=== PATIENT | female | born 1985 ===

== ENCOUNTER 2019-03-23 19:25 | Inpatient (IN) | payer OTHER ==
[2019-03-23] MEDS ORDERED: AMPICILLIN - 2 GM in SODIUM CHLORIDE 100 ML IVPB ONE (20:00)
[2019-03-23] MEDS ORDERED: ELECTROLYTE-148 SOLN 1,000 ML IV SCH (20:45)
--- NOTE | 2019-03-23 20:47 | HP ---
Past Medical History - Admission History of Present Illness: 33 yo @ 39 2/7 wks by first trimester ultrasound, EDC complicated by: 1. AMA - Reassuring [id number] and testing On ASA for PEC prophylaxis 2. Obesity - Starting BMI 30 33 lb wt gain Early GCT - 128 (10 wks) GCT @ 28 wks - 131 Last ultrasound 03/04/2019 (36 wks) 3096g (6-13; 63%ile) Patient presents with chief complaint of contractions that began at 1800 and rupture of membranes at 1845. She reports movement, denies vaginal bleeding. Limitations to Obtaining History: No Limitations - Past Medical History Cardiovascular: No: HTN Pulmonary: No: Asthma Gastrointestinal: No: GERD ...: 3 ...Para: 2 ...Term: 2 ...EDC by Dates: 03/28/19 Heme/Onc: No: Anemia - Past Surgical History Past Surgical History: Yes: None Hx Myomectomy: No Hx Transabdominal Cerclage: No - Smoking History Have you smoked in the past 12 months: No - Alcohol/Substance Use Hx Alcohol Use: No History of Substance Use: reports: None - Social History Usual Living Arrangement: Yes: With Spouse History of Recent Travel: No Home Medications - Allergies Allergies/Adverse Reactions: Allergies Allergy/AdvReac Type Severity Reaction Status Date / Time No Known Allergies Allergy Verified 03/23/19 20:36 Family Medical History Family History: Denies Review of Systems - Review of Systems Constitutional: reports: No Symptoms Cardiovascular: reports: No Symptoms Respiratory: reports: No Symptoms Gastrointestinal: reports: No Symptoms Genitourinary: reports: No Symptoms Musculoskeletal: reports: No Symptoms Neurological: reports: No Symptoms Endocrine: reports: No Symptoms Psychiatric: reports: No Symptoms Physical Exam - Maternity Constitutional: Yes: Well Nourished, No Distress, Calm Cardiovascular: Yes: Regular Rate and Rhythm Lungs: Clear to auscultation - Abdominal Exam/OB Number of Fetuses: Single Heart Rate (range): 140 Category: I - Vaginal Exam/OB Dilatation (cm): 4 - Physical Exam Edema: No Psychiatric: Yes: Alert, Oriented - Labs Lab Results: labs: O positive, antibody negative, RPR NR; HIV Neg; HBs Ag negative; HCV negative; GCT (early and 28 wk) WNL; Inheritest Negative; HB jin AA; Parvo immune; GBS positive Hemorrhage Risk Assessment - Risk Factors Medium Risk Factors: Yes: None High Risk Factors: Yes: None Risk Score: 1 Risk Level: Medium Risk Assessment/Plan 33 yo @ 39 wks SROM, active labor 1. Admit to L&D 2. Routine labs collected and sent 3. GBS positive, no PCn allergy; will start ampicillin 4. Category I FHT 5. Will offer pain medication upon patient request 6. Will proceed with expectant management
[2019-03-23 20:48] LABS: BASO % 0.6 % (0-2.0); EOS % 1.1 % (0-4.5); HEMATOCRIT 35.8 % (32.4-45.2); HEMOGLOBIN 11.5 GM/dL (10.7-15.3); MCH 27.8 pg (25.7-33.7); MCHC 32.1 g/dl (32.0-36.0); MEAN CELL VOLUME 86.5 fl (80-96); MEAN PLT VOLUME 9.6 fl (7.5-11.1); NEUT % 68.3 % (42.8-82.8); PLATELET COUNT 246 K/MM3 (134-434); RBC 4.13 M/mm3 (3.60-5.2); RDW 14.8 % (11.6-15.6)
[2019-03-23 21:02] LABS: INR 0.95 (0.83-1.09); PROTHROMBIN TIME (PATIENT) 11.2 SEC (9.7-13.0)
[2019-03-23 21:05] LABS: ACTIVATED PTT 29.8 SECONDS (25.2-36.5)
[2019-03-23] MEDS ORDERED: BUPIVACAINE HCL/PF 2.5 MG/ML - 30 ML VIAL IJ ONE ×2 (21:06→22:47)
[2019-03-23] MEDS ORDERED: LIDO 2%/EPI 1:200000 PRESRVFRE (20 ML SDVIAL) ONE (21:06)
[2019-03-23 21:12] LABS: BLOOD UREA NITROGEN 10.8 mg/dL (7-18); CALCIUM 8.9 mg/dL (8.5-10.1); CREATININE 0.7 mg/dL (0.55-1.3); POTASSIUM 3.8 mmol/L (3.5-5.1)
[2019-03-23] MEDS ORDERED: NALOXONE HCL 0.4 MG/ML VIAL IVPUSH PRN (21:54)
[2019-03-23] MEDS ORDERED: FENTANYL/BUPIVACAINE/NS/PF - PCEA - 50 ML DISP.SYRIN EP SCH (22:00)
[2019-03-23] MEDS ORDERED: FENTANYL/BUPIVACAINE/NS/PF - PCEA - 50 ML DISP.SYRIN EP ONE (22:13)
[2019-03-23 22:37] VITALS: BMI 35.5
[2019-03-23] MEDS ORDERED: LIDOCAINE HCL 1% PRESERVATIVE FREE - 30ML VIAL ONE (23:38)
[2019-03-23] MEDS ORDERED: OXYTOCIN 20 UNITS in 0.9% NS 20 UNIT/1,000 ML INFUS.BAG IV ONE (23:39)
[2019-03-23] MEDS: OXYTOCIN 20 UNITS in 0.9% NS 20 UNIT/1,000 ML INFUS.BAG IV SCH (23:50)
[2019-03-23] MEDS ORDERED: BENZOCAINE 20% 57 GM BOTTLE TP PRN (23:58)
[2019-03-23] MEDS ORDERED: WITCH HAZEL 50% (TUCKS) 40 PAD/JAR PAD TP PRN (23:58)
[2019-03-23] MEDS ORDERED: BENZOCAINE 28 GM HEMORRHOIDAL OINTMENT TP PRN (23:58)
[2019-03-23] MEDS ORDERED: METHYLERGONOVINE MALEATE 0.2 MG/1 ML AMP IM PRN (23:58)
[2019-03-23] MEDS ORDERED: BISACODYL 10 MG SUPP.RECT RC PRN (23:58)
--- NOTE | 2019-03-23 23:58 | PN ---
Delivery - Delivery Vaginal Delivery: No Problems Type of Anesthesia: Epidural Episiotomy/Laceration: None EBL (cc): 200 Delivery, Single - Stages of Labor Date 1st Stage Initiatied: 03/23/19 Time 1st Stage Initiated: 18:00 Date 2nd Stage Initiated: 03/23/19 Time 2nd Stage Initiated: 23:35 Date of Delivery: 03/23/19 Time of Delivery: 23:42 Date Placenta Delivered: 03/23/19 Time Placenta Delivered: 23:47 Placenta: Yes: Spontaneous - Condition of Perforator Typist/Large Engine Assembler Present: Yes Name: Nohemi Naqvi Gender: Male Position: Left, OA Total Hours ROM (Hrs/Mins): 4 hours 57 minutes - 1 Minute Total Score: 9 5 Minutes Total Score: 9 - [place] Feeding Plan Initial Plan: Exclusive throughout hospitalization Remarks - Remarks Remarks: Patient progressed to fully dilated and at 2335 via delivered a viable male infant in MARIA LUISA position, APGARs 9,9. Weight and length unknown at this time. Head delivered spontaneously followed by shoulders and body without difficulty. with spontaneous cry and placed on mother's abdomen. Nose and mouth was bulb suctioned. Cord was clamped and cut. Perineum and vagina examined, no laceration noted. Placenta was delivered spontaneously and intact. 20 units of pitocin in 1 L IVF was given. All counts correct x 2. Mother and infant stable in LDR. EBL 200cc.
[2019-03-24] MEDS ORDERED: AMPICILLIN - 1 GM in SODIUM CHLORIDE 100 ML IVPB SCH
[2019-03-24] MEDS ORDERED: OXYTOCIN 20 UNITS in 0.9% NS 20 UNIT/1,000 ML INFUS.BAG IV ONE (02:34)
[2019-03-24] MEDS: OXYTOCIN 20 UNITS in 0.9% NS 20 UNIT/1,000 ML INFUS.BAG IV SCH (02:45)
[2019-03-24] MEDS ORDERED: DEXTROSE 5%-LACTATED RINGERS 1,000 ML IV ONE (03:36)
[2019-03-24] MEDS ORDERED: DEXTROSE 5%-LACTATED RINGERS 1,000 ML IV SCH (03:59)
[2019-03-24] MEDS: IBUPROFEN 600 MG TABLET (FP) PO PRN ×2 (05:00→09:37)
[2019-03-24] MEDS: ACETAMINOPHEN 325 MG TABLET (FP) PO PRN ×2 (05:00→09:38)
--- NOTE | 2019-03-24 06:57 | PN ---
Post Progress Note - Subjective Subjective: Patient without acute complaints. Reports tolerating oral intake without nausea or vomiting. Ambulating without dizziness. Denies fevers or chills. Pain well controlled with oral pain medication. Patient desires to breastfeed - latching well. Passing flatus. Post Day: 1 Type of Delivery: Vital Signs: Vital Signs Temperature 98 F 03/24/19 04:58 Pulse Rate 88 03/24/19 04:58 Respiratory Rate 18 03/24/19 04:58 Blood Pressure 131/70 03/24/19 04:58 O2 Sat by Pulse Oximetry (%) 100 03/23/19 23:40 Breast Exam: Yes: Soft Uterus: Yes: Fundus Firm, Fundus @ umbilicus (deviated to patient right) Abdomen/GI: Yes: Abdomen soft, Passing flatus, Tolerating PO. No: Abdominal Distention, Tender Lochia: Yes: Rubra Lochia, amount: Moderate Extremities: Yes: Calves non-tender, Edema (trace) Activity: Ambulating - Labs Labs: CBC WBC 12.0 K/mm3 (4.0-10.0) H 03/23/19 20:30 RBC 4.13 M/mm3 (3.60-5.2) 03/23/19 20:30 Hgb 11.5 GM/dL (10.7-15.3) 03/23/19 20:30 Hct 35.8 % (32.4-45.2) 03/23/19 20:30 MCV 86.5 fl (80-96) 03/23/19 20:30 MCH 27.8 pg (25.7-33.7) 03/23/19 20:30 MCHC 32.1 g/dl (32.0-36.0) 03/23/19 20:30 RDW 14.8 % (11.6-15.6) 03/23/19 20:30 Plt Count 246 K/MM3 (134-434) 03/23/19 20:30 MPV 9.6 fl (7.5-11.1) 03/23/19 20:30 Absolute Neuts (auto) 8.2 K/mm3 (1.5-8.0) H 03/23/19 20:30 Neutrophils % 68.3 % (42.8-82.8) 03/23/19 20:30 Lymphocytes % 19.0 % (8-40) 03/23/19 20:30 Monocytes % 11.0 % (3.8-10.2) H 03/23/19 20:30 Eosinophils % 1.1 % (0-4.5) 03/23/19 20:30 Basophils % 0.6 % (0-2.0) 03/23/19 20:30 Nucleated RBC % 0 % (0-0) 03/23/19 20:30 Assessment/Plan 33 yo PPD# 1 s/p , afebrile, vital signs stable, doing well 1. Continue routine care. 2. AB CBC with mild anemia 3. Rh positive status, no rhogam indicated. 4. Encourage ambulation 5. Continue oral pain medication 6. Anticipate discharge home day #2
[2019-03-24 07:17] LABS: BASO % 0.3 % (0-2.0); EOS % 0.1 % (0-4.5); HEMATOCRIT 31.3 % (32.4-45.2); HEMOGLOBIN 10.3 GM/dL (10.7-15.3); LYMPH % 13.3 % (8-40); MCH 28.3 pg (25.7-33.7); MCHC 32.8 g/dl (32.0-36.0); MEAN CELL VOLUME 86.1 fl (80-96); MEAN PLT VOLUME 10.1 fl (7.5-11.1); MONO % 8.5 % (3.8-10.2); NEUT % 77.8 % (42.8-82.8); PLATELET COUNT 230 K/MM3 (134-434); RBC 3.63 M/mm3 (3.60-5.2); RDW 14.7 % (11.6-15.6); WHITE BLOOD COUNT 14.3 K/mm3 (4.0-10.0)
[2019-03-24] MEDS: PRENATAL VITAMINS W/ FOLIC ACID TABLET (FP) PO SCH (09:37)
[2019-03-24] MEDS ORDERED: SENNOSIDES/DOCUSATE COMBO (SENNA PLUS) TABLET (UD) PO PRN (22:00)
--- NOTE | 2019-03-25 08:03 | DS ---
Physical Exam-PATIENT INTAKE COORDINATOR Vital Signs: Vital Signs Temperature 98.2 F 03/25/19 01:00 Pulse Rate 85 03/25/19 01:00 Respiratory Rate 18 03/25/19 01:00 Blood Pressure 99/63 03/25/19 01:00 O2 Sat by Pulse Oximetry (%) 100 03/23/19 23:40 Constitutional: Yes: Well Nourished, No Distress, Calm Eyes: Yes: WNL, Conjunctiva Clear HENT: Yes: WNL, Atraumatic, Normocephalic Neck: Yes: WNL, Supple, Trachea Midline Cardiovascular: Yes: WNL, Regular Rate and Rhythm Respiratory: Yes: WNL, Regular, CTA Bilaterally Gastrointestinal: Yes: WNL, Normal Bowel Sounds, Soft ...Rectal Exam: Yes: Deferred Renal/: Yes: WNL External Genitalia: Yes: Normal ....Post : Yes: Uterus firm, Uterus non-tender, Slight lochia rubra Musculoskeletal: Yes: WNL Extremities: Yes: WNL Edema: Yes Edema: LLE: Trace, RLE: Trace Integumentary: Yes: WNL Neurological: Yes: WNL, Alert, Oriented ...Motor Strength: WNL Psychiatric: Yes: WNL, Alert, Oriented Labs: CBC, BMP 03/24/19 06:43 03/23/19 20:30 Delivery - Delivery Vaginal Delivery: No Problems, Spontaneous Type of Anesthesia: Epidural Episiotomy/Laceration: None EBL (cc): 200 Delivery, Single - Stages of Labor Date 1st Stage Initiatied: 03/23/19 Time 1st Stage Initiated: 18:00 Date 2nd Stage Initiated: 03/23/19 Time 2nd Stage Initiated: 23:35 Date of Delivery: 03/23/19 Time of Delivery: 23:42 Time Placenta Delivered: 23:47 Placenta: Yes: Spontaneous, Normal Configuration - Condition of Able Bodied Watchman/All Terrain Vehicle Racer Present: Yes Name: Nohemi Naqvi Infant Gender: Male Weight: 3.629 kg Position: Left, OA Total Hours ROM (Hrs/Mins): 4 hours 57 minutes - 1 Minute Total Score: 9 5 Minutes Total Score: 9 - Feeding Plan Initial Plan: Exclusive throughout hospitalization Benefits of Exclusively reinforced: No Discharge Summary Problems reviewed: Yes Reason For Visit: Labor at term Procedures: Principal: HARIS Hospital Course: Normal recovery Condition: Good - Instructions Diet, Activity, Other Instructions: Physical activity Resume your normal everyday activity as tolerated no heavy lifting or exercise until seen by your surgeon. You may walk unlimited maikel of and climb stairs. You may resume driving the car when you feel safe and comfortable behind the wheel. No sexual activity as instructed. Wound care If you have a bandage, leave it on, and keep dry for 48-72 hours. After that time discard the outer bandage. If they are tapes on the skin under the out of bandage leave them in place. They will peel off in the next 7 to 10 days. Do Not Peel them off. You may shower the day after surgery. If there are tapes present on the skin, you may shower over them. Diet There are no dietary restrictions. Eat healthy, high-fiber foods. Drink 6 to 8 glasses of liquid each day. This will assist in keeping your bowels are regular. Pain management You may take Tylenol or acetaminophen or Ibuprofen (for example, Motrin, Advil etc.) from my pain prescription medication is ordered should be taken as prescribed for moderate to severe pain. Call MD for any of the following: Severe pain not relieved by medication Fever of 101 or higher Excessive bleeding or drainage on dressing Inability to urinate Referrals: Vianney Alva MD [Staff Physician] - Disposition: HOME - Home Medications Comprehensive Discharge Medication List: Ambulatory Orders Aspirin [ASA -] 1 tab PO DAILY 03/24/19 Pnv No.95/Ferrous Fum/Folic AC [ Vitamin Tablet] 1 tab PO DAILY Prescription Drug Monitoring Program (I-STOP) results: I-STOP not reviewed
[2019-03-25] MEDS: PRENATAL VITAMINS W/ FOLIC ACID TABLET (FP) PO SCH (09:38)
[2019-03-25 12:33] VITALS: BP 126/75; PULSE 76; TEMP 98.8
== END 2019-03-25 14:40 | disposition home or self-care (01) | DRG 560 ==
LOC: JLDR 19:25 → J3W 03-24 04:45
PROVIDERS: ADMIT Obstetrics & Gynecology; ATTEND Obstetrics & Gynecology
PROC: 10E0XZZ Delivery of Products of Conception, External Approach (ICD-10-PCS; principal; 2019-03-23)
DX: O99.214 Obesity complicating childbirth (principal); Z3A.39 39 weeks gestation of pregnancy; Z22.330 Carrier of Group B streptococcus; O99.013 Anemia complicating pregnancy, third trimester; Z37.0 Single live birth
CPT/HCPCS: 36415; 59409; 80048; 85025; 85610; 85730; 86593; 86850; 86900; 86901; 87389